=== PATIENT | female | born 1990 | race Two or more races ===

== ENCOUNTER → 2022-02-20 | Outpatient (CLI) | payer SELFPAY | LOC: LAB 12:39 | PROVIDERS: ATTEND Obstetrics & Gynecology | DX: Z01.812 Encounter for preprocedural laboratory examination (principal); Z20.822 Contact with and (suspected) exposure to COVID-19 | CPT/HCPCS: U0003 ==

== ENCOUNTER 2022-02-23 05:59 | Inpatient (IN) | payer SELFPAY ==
[~2022-02-23] VITALS: Ht 154.9 cm; Wt 75.7 kg
[2022-02-23] MEDS ORDERED: ACETAMINOPHEN 325 MG TABLET. PO PRN (06:00)
[2022-02-23] MEDS ORDERED: TERBUTALINE 1 MG/ML VIAL. SQ PRN (06:00)
[2022-02-23] MEDS ORDERED: 0.9 % SODIUM CHLORIDE 10 ML DISP.SYRIN. IV PRN ×2 (06:00→13:15)
[2022-02-23] MEDS ORDERED: OXYTOCIN 30 UNIT/500 ML PREMIX 500 ML IV PRN ×3 (06:00→13:15)
[2022-02-23] MEDS ORDERED: IV RINGERS,LACTATED 1000ML 1,000 ML IV SCH (06:00)
[2022-02-23] MEDS ORDERED: LIDOCAINE 1% PF 30 ML VIAL. INJ PRN (06:00)
[2022-02-23] MEDS ORDERED: BUTORPHANOL 2 MG/ML VIAL. IVP PRN ×2 (06:00)
[2022-02-23 07:09] LABS: BASO % 0 % (0-3); EOS # 0.1 x10^3/uL (0.0-0.7); EOS % 1 % (0-3); HEMATOCRIT 36.1 % (36.0-47.0); HEMOGLOBIN 12.5 g/dL (12.0-15.5); LYMPH # 3.7 x10^3/uL (1.0-4.8); LYMPH % 31 % (24-48); MEAN CORPUSCULAR HEMOGLOBIN 29 pg (25-35); MEAN CORPUSCULAR HGB CONC 35 g/dL (31-37); MEAN CORPUSCULAR VOLUME 84 fL (79-100); MONO # 0.7 x10^3/uL (0.0-1.1); MONO % 6 % (0-9); NEUT # 7.4 x10^3/uL (1.8-7.7); NEUT % 62 % (31-73); PLATELET COUNT 290 x10^3/uL (140-400); RED BLOOD COUNT 4.31 x10^6/uL (3.50-5.40); RED CELL DISTRIBUTION WIDTH 13.5 % (11.5-14.5); WHITE BLOOD COUNT 11.9 x10^3/uL (4.0-11.0)
[2022-02-23] MEDS ORDERED: OXYTOCIN PREMIX 30 UNIT/500 ML NS BAG. IV ONE (07:30)
[2022-02-23 07:53] LABS: BACTERIA,URINE FEW /HPF (0-FEW); RBC,URINE 0 /HPF (0-2); WBC,URINE OCC /HPF (0-4)
--- NOTE | 2022-02-23 09:43 | PDOC1 ---
MANAGER DIESEL H&P Date of Admission: Date of Admission: February 23, 2022 at 05:59 History of Present Illness: EDC: 02/20/22 LMP: 05/16/21 31y @ 40.3 by L=36 presents for scheduled indxn. The pt began her care in [place] and transferred around 39wks. Her has been otherwise uncomplicated. PMH: Denies PSH: Denies Meds: PNV All: NKDA OBHx: TSVD x 4 SH: no tob, no EtOH FH: noncontributory Allergies: Coded Allergies: No Known Drug Allergies (Unverified , 02/23/22) Physical Exam: PE: GENERAL: No apparent distress. Alert and oriented. HEENT: Head normocephalic, atraumatic. NECK: Supple LUNGS: Clear to auscultation. HEART: RRR, S1, S2 present, pulses intact ABDOMEN: Soft, positive bowel sounds. EXTREMITIES: No cyanosis or edema. NEUROLOGIC: Normal speech, normal tone PSYCHIATRIC: Normal affect, normal mood. SKIN: No ulceration. FHT: 130s +acels/no decels/mLTV [place]: 5 min SVE: 3/70/-3 Labs: Laboratory Tests Test 02/23/22 06:20 02/23/22 06:43 Urine Collection Type Unknown Urine Color (Auto) Light yellow Urine Turbidity Clear Urine pH (Auto) 6.0 (<5.0-8.0) Urine Specific [place] 1.014 (1.000-1.030) Urine Protein (Auto) Negative mg/dL (Negative) Urine Glucose (Auto)(UA) Negative mg/dL (Negative) Urine Ketones (Auto) Negative mg/dL (Negative) Urine Blood (Auto) Negative (Negative) Urine Nitrite Negative (Negative) Urine Bilirubin (Auto) Negative (Negative) Urine Urobilinogen (Auto) Normal mg/dL (Normal) Urine Leukocyte Esterase (Auto) Negative (Negative) Urine RBC 0 /HPF (0-2) Urine WBC Occ /HPF (0-4) Urine Squamous Epithelial Cells Many /LPF Urine Bacteria Few /HPF (0-FEW) Urine Mucus Mod /LPF White Blood Count 11.9 x10^3/uL (4.0-11.0) H Red Blood Count 4.31 x10^6/uL (3.50-5.40) Hemoglobin 12.5 g/dL (12.0-15.5) Hematocrit 36.1 % (36.0-47.0) Mean Corpuscular Volume 84 fL (79-100) Mean Corpuscular Hemoglobin 29 pg (25-35) Mean Corpuscular Hemoglobin Concent 35 g/dL (31-37) Red Cell Distribution Width 13.5 % (11.5-14.5) Platelet Count 290 x10^3/uL (140-400) Neutrophils (%) (Auto) 62 % (31-73) Lymphocytes (%) (Auto) 31 % (24-48) Monocytes (%) (Auto) 6 % (0-9) Eosinophils (%) (Auto) 1 % (0-3) Basophils (%) (Auto) 0 % (0-3) Neutrophils # (Auto) 7.4 x10^3/uL (1.8-7.7) Lymphocytes # (Auto) 3.7 x10^3/uL (1.0-4.8) Monocytes # (Auto) 0.7 x10^3/uL (0.0-1.1) Eosinophils # (Auto) 0.1 x10^3/uL (0.0-0.7) Basophils # (Auto) 0.0 x10^3/uL (0.0-0.2) Laboratory Tests 02/23/22 06:43 Laboratory Tests 02/23/22 06:43 Assessment & Plan: A/P 31y @ 40.3 by L=36 1.) Indxn on Pit 2.) TDAP given 11/12/21 3.) No GTT 4.) Fetus cat I FHT 5.) GBS neg SINGH BARNETT MD February 23, 2022 09:43
[2022-02-23] MEDS ORDERED: LIDOCAINE 2% PF 5 ML VIAL. ONE (12:30)
--- NOTE | 2022-02-23 13:10 | PDOC4 ---
VAGINAL DELIVERY DATE DATE: 02/23/22 TIME: 13:10 TIME Patient delivered a viable female over intact perineum at 1301. Wt 8 lb 10 oz. Apgars 8/9. Placenta delivered spontaneously, intact with 3VC. No lacerations noted. Good hemostasis noted. 20 U of Pit given with IVF. EBL 100 cc. WEIGHT Weight [ ] SINGH BARNETT MD February 23, 2022 13:10
[2022-02-23] MEDS ORDERED: SIMETHICONE 80 MG TAB.CHEW PO PRN (13:15)
[2022-02-23] MEDS ORDERED: BENZOCAINE 20% TOPICAL AEROSOL SPRAY 57GM CAN. TP PRN (13:15)
[2022-02-23] MEDS ORDERED: PHENYLEPH/MINERAL OIL/PETROLAT RECTAL OINTMENT TUBE. RC PRN (13:15)
[2022-02-23] MEDS ORDERED: HYDROCORTISONE 1% TOPICAL OINTMENT 30GM TUBE. TP PRN (13:15)
[2022-02-23] MEDS ORDERED: MMR per PROTOCOL. MC PRN (13:15)
[2022-02-23] MEDS ORDERED: diphenhydrAMINE HCL 25 MG CAPSULE PO PRN (13:15)
[2022-02-23] MEDS ORDERED: MAG HYDROX/ALUMINUM HYD/SIMETH 30 ML ORAL.SUSP PO PRN (13:15)
[2022-02-23] MEDS ORDERED: TDaP (BOOSTRIX) per PROTOCOL. MC PRN (13:15)
[2022-02-23] MEDS ORDERED: ZOLPIDEM 5 MG TABLET. PO PRN (13:15)
[2022-02-23] MEDS ORDERED: oxyCODONE/APAP 5/325 1 TAB TABLET PO PRN (13:15)
[2022-02-23] MEDS ORDERED: MAGNESIUM HYDROXIDE 2,400 MG/30 ML ORAL.SUSP. PO PRN (13:15)
[2022-02-23] MEDS: IBUPROFEN 400 MG TABLET. PO PRN (16:11)
--- NOTE | 2022-02-23 16:38 | NUR ---
Pt. Transfers into room 341 at this time, pt. is alert and oriented on room air, denies pain, pt.'s mother and accompany pt. and belongings go with pt.
[2022-02-23 18:27] VITALS: BP 121/53
[2022-02-23 22:15] VITALS: BP 102/64
[2022-02-24] MEDS: IBUPROFEN 400 MG TABLET. PO PRN ×2 (00:35→16:32)
[2022-02-24 02:00] VITALS: BP 105/71
[2022-02-24] MEDS: ACETAMINOPHEN 325 MG TABLET. PO PRN (07:44)
[2022-02-24] MEDS ORDERED: FERROUS SULFATE 325 MG TABLET. PO SCH (08:00)
[2022-02-24 09:22] LABS: HEMATOCRIT 35.3 % (36.0-47.0); HEMOGLOBIN 12.2 g/dL (12.0-15.5); RED BLOOD COUNT 4.21 x10^6/uL (3.50-5.40); RED CELL DISTRIBUTION WIDTH 13.4 % (11.5-14.5); WHITE BLOOD COUNT 12.7 x10^3/uL (4.0-11.0)
[2022-02-24] MEDS: DOCUSATE SODIUM 100 MG CAPSULE. PO PRN (09:37)
[2022-02-24] MEDS: PRENATAL MULTIVITAMIN TABLET. PO SCH (09:38)
[2022-02-24 09:45] VITALS: BP 110/70
--- NOTE | 2022-02-24 13:54 | PDOC ---
[employer] PROGRESS NOTE Date of Service: DATE: 02/24/22 TIME: 13:52 Subjective: PPD#1 s/p . Doing well. Pain well managed with PO meds. Tolerates diet, activity, and voiding without difficulty. Otherwise denies complaints. Objective: Objective: FF @ U/1, scant lochia Vital Signs: Vital Signs Date Time Temp Pulse Resp B/P (MAP) Pulse Ox O2 Delivery O2 Flow Rate FiO2 02/23/22 17:35 Room Air 02/23/22 18:27 98.6 78 18 121/53 (75) 98.6 02/23/22 22:15 97 Vital Signs Date Time Temp Pulse Resp B/P (MAP) Pulse Ox O2 Delivery O2 Flow Rate FiO2 02/24/22 09:45 98.2 74 18 110/70 (83) Room Air 98.2 02/24/22 02:00 98 Labs: Laboratory Tests Test 02/24/22 08:55 White Blood Count 12.7 x10^3/uL (4.0-11.0) H Red Blood Count 4.21 x10^6/uL (3.50-5.40) Hemoglobin 12.2 g/dL (12.0-15.5) Hematocrit 35.3 % (36.0-47.0) L Mean Corpuscular Volume 84 fL (79-100) Mean Corpuscular Hemoglobin 29 pg (25-35) Mean Corpuscular Hemoglobin Concent 35 g/dL (31-37) Red Cell Distribution Width 13.4 % (11.5-14.5) Platelet Count 277 x10^3/uL (140-400) Laboratory Tests 02/24/22 08:55 Laboratory Tests 02/24/22 08:55 Physical Exam: GENERAL: No apparent distress. Alert and oriented. HEENT: Head normocephalic, atraumatic. NECK: Supple LUNGS: Clear to auscultation. HEART: RRR, S1, S2 present, pulses intact ABDOMEN: Soft, positive bowel sounds. EXTREMITIES: No cyanosis or edema. NEUROLOGIC: Normal speech, normal tone PSYCHIATRIC: Normal affect, normal mood. SKIN: No ulceration. Assessment & Plan: Cont routine PP care. Anticipate d/c home tomorrow. TITO BAUTISTA CNM February 24, 2022 13:54
[2022-02-24 14:30] VITALS: BP 110/71
[2022-02-24 21:00] VITALS: BP 111/68
--- NOTE | 2022-02-24 21:18 | NUR ---
Patient states that when she leaves the hospital she does not have any formula to feed her baby. Will pass this information to the next shift to make sure the resource team visits the patient and assesses her needs, also copied the resource team form and put in inner office for the team to review.
[2022-02-25] MEDS: IBUPROFEN 400 MG TABLET. PO PRN ×2 (05:20→13:28)
[2022-02-25 05:27] VITALS: BP 113/76
[2022-02-25 08:15] VITALS: BP 113/70
[2022-02-25] MEDS: DOCUSATE SODIUM 100 MG CAPSULE. PO PRN (09:07)
[2022-02-25] MEDS: PRENATAL MULTIVITAMIN TABLET. PO SCH (09:07)
[2022-02-25] MEDS: ACETAMINOPHEN 325 MG TABLET. PO PRN (09:07)
[2022-02-25] MEDS ORDERED: IBUP-1060 PO (10:02)
[2022-02-25] MEDS ORDERED: DOCU-109 PO (10:02)
--- NOTE | 2022-02-25 10:58 | PDOC ---
[employer]KER PROGRESS NOTE Date of Service: DATE: 02/25/22 TIME: 10:58 Subjective: Pt with good pain control. Dalia PO. Voiding. Minimal lochia. Objective: Vital Signs: Vital Signs Date Time Temp Pulse Resp B/P (MAP) Pulse Ox O2 Delivery O2 Flow Rate FiO2 02/24/22 09:00 Room Air 02/24/22 09:45 98.2 74 18 110/70 (83) 98.2 02/24/22 21:00 97 Vital Signs Date Time Temp Pulse Resp B/P (MAP) Pulse Ox O2 Delivery O2 Flow Rate FiO2 02/25/22 08:15 98.1 69 20 113/70 (84) 97 Room Air 98.1 Physical Exam: GENERAL: No apparent distress. Alert and oriented. HEENT: Head normocephalic, atraumatic. NECK: Supple LUNGS: Clear to auscultation. HEART: RRR, S1, S2 present, pulses intact ABDOMEN: Soft, positive bowel sounds. EXTREMITIES: No cyanosis or edema. NEUROLOGIC: Normal speech, normal tone PSYCHIATRIC: Normal affect, normal mood. SKIN: No ulceration. FFNT below umb No C/C/E Assessment & Plan: A/P 31y PPD #2 s/p 1.) PP doing well 2.) TDAP given 11/12/21 3.) Hgb 12.5 -> 12.2 4.) Cont PP SINGH Orourke MD February 25, 2022 10:58
[2022-02-25 13:55] VITALS: BP 118/74
--- NOTE | 2022-02-25 14:20 | NUR ---
Pt. d/c to home per order. [facility] Resource Team saw pt. today and set up resources for formula for the baby. No questions verbalized over d/c instructions at this time. License Issuer phone used for instructions #[id number].
--- NOTE | 2022-02-25 21:45 | DS ---
DATE OF DISCHARGE: 02/25/2022 ADMISSION DIAGNOSES: 1. Intrauterine at 40 weeks and 3 days by last menstrual period equal to 36-week ultrasound. 2. Induction of labor. 3. Status post Tdap. 4. Never had a glucose tolerance test. 5. GBS negative. DISCHARGE DIAGNOSES: 1. Intrauterine at 40 weeks and 3 days by last menstrual period equal to 36-week ultrasound. 2. Induction of labor. 3. Status post Tdap. 4. Never had a glucose tolerance test. 5. GBS negative. PROCEDURE: Spontaneous vaginal delivery. BRIEF HOSPITAL COURSE: The patient is a 31-year-old 5, para 4-0-0-4, who presented to Labor and Delivery at 40 weeks and 3 days by LMP equal to a 36-week ultrasound for induction of labor. The patient began her care in [place] and transferred around 39 weeks. The patient's had been otherwise uncomplicated. When the patient arrived, she was started on Pitocin. Later that afternoon, she was ruptured and shortly thereafter, she had a vaginal delivery. See delivery note for full detail. By day #2, the patient was meeting all discharge criteria and subsequently discharged home. Of note, the patient's hemoglobin on admission was 12.5 and after delivery, was found to be 12.2. DISCHARGE INSTRUCTIONS: The patient was told not to lift anything greater than 20 pounds, have pelvic rest for 6 weeks. The patient was to call if she had fevers, chills, nausea, vomiting, abdominal pain, or any additional questions or concerns. FOLLOWUP: The patient was to follow up on 04/07/2022 at 11 a.m. at [facility] [place] for a visit. DISCHARGE MEDICATIONS: The patient was given a prescription for Motrin 800 mg, 30 pills and Colace 100 mg, #30 pills. MCKENNA/MELVIN/LAURA DR: Yolanda TID: [id number]
== END 2022-02-25 14:20 | disposition home or self-care (01) | DRG 807 ==
LOC: 3 SO LND 05:59 → OBSVTOIN 06:00 → 3 SO LND 16:30
PROVIDERS: ADMIT Obstetrics & Gynecology; ATTEND Obstetrics & Gynecology
PROC: 10E0XZZ Delivery of Products of Conception, External Approach (ICD-10-PCS; principal; 2022-02-23)
DX: O80 Encounter for full-term uncomplicated delivery (principal); Z37.0 Single live birth; Z3A.40 40 weeks gestation of pregnancy
CPT/HCPCS: 36415; 81001; 85025; 85027; 86592; 86850; 86900; 86901; G0379; J2590; J7120; G0378